=== PATIENT | female | born 1980 | race Caucasian/White ===

== ENCOUNTER 2019-09-12 09:11 | Emergency (ER) | payer BC ==
[2019-09-12] MEDS ORDERED: Sodium Chloride 0.9% 10 ML Syringe FLUSH PRN ×2 (09:49→12:25)
[2019-09-12] MEDS ORDERED: Sodium Chloride 0.9% 1,000 ML IV STA (09:49)
[2019-09-12] MEDS ORDERED: Ondansetron 4 MG/2 ML SDV IVPUSH ONE (09:49)
[2019-09-12] MEDS ORDERED: HYDROmorphone 0.5 MG/0.5 ML Syringe IVPUSH ONE ×2 (09:53→13:44)
--- NOTE | 2019-09-12 09:54 | EDM.PDOC ---
<Shelly Tobar - Last Filed: 09/12/19 10:05> ED HPI GENERAL MEDICAL PROBLEM - General Chief Complaint: Abdominal Pain Stated Complaint: ABDOMINAL PAIN Time Seen by Provider: 09/12/19 09:21 Source of Information: Reports: Patient History Limitations: Reports: No Limitations - History of Present Illness INITIAL COMMENTS - FREE TEXT/NARRATIVE: 38-year-old female presents with RUQ abdominal pain that started this morning. She states that she was sitting in her chair drinking coffee when she noticed a sharp, stabbing pain (8/10) in the RUQ. The pain is intermittent lasting a minute or two every couples minutes. The pain subsides on its own with no interventions. The patient denies bowel and bladder changes. She had not eaten before the pain started and had not physically exerted herself. She notes that she has had this problem in the past and has many images taken via CT and MRI. One past image had found a mass on a her gallbladder, but it was absent in subsequent images. She does have a history of kidney stones but notes that this pain does not feel the same. She has had multiple abdominal surgeries including 3 Cesareans and 3 failed hernia repairs. She does still have her gallbladder and appendix. Her history also includes ankylosing spondylitis. She is not currently on any medications but had recently stopped a steroid pack last week and tordol. She notes that she works for a company that requires her to regularly lift heavy objects, but states that she hadn't injured herself before the pain started. Onset: Today, Sudden Duration: Intermittent Location: Reports: Abdomen (RUQ) Quality: Reports: Sharp, Stabbing Severity: Severe (8/10) Improves with: Reports: None Worsens with: Reports: None Associated Symptoms: Reports: No Other Symptoms Right Upper Abdominal Pain Score (Numeric/FACES): 8 - Related Data Allergies Allergy/AdvReac Type Severity Reaction Status Date / Time No Known Allergies Allergy Verified 09/12/19 09:24 Home Meds: Home Meds Naproxen Sodium [Aleve] 220 mg PO DAILY 09/12/19 [History] Ondansetron [Zofran ODT] 4 mg PO Q6H PRN #20 tab.dis 09/12/19 [Rx] traMADol [Ultram] 50 - 100 mg PO Q6H PRN #20 tab 09/12/19 [Rx] Past Medical History Other HEENT History: barretts esophagus Gastrointestinal History: Reports: Gastritis, Other (See Below) Other Gastrointestinal History: mass found on gallbladder- went away. Social & Family History - Caffeine Use Caffeine Use: Reports: Coffee ED ROS GENERAL - Review of Systems Review Of Systems: See Below Constitutional: Reports: No Symptoms HEENT: Reports: No Symptoms Respiratory: Reports: No Symptoms Cardiovascular: Reports: No Symptoms Endocrine: Reports: No Symptoms GI/Abdominal: Reports: Abdominal Pain (RUQ, sharp stabbing). Denies: Bloody Stool, Constipation, Diarrhea, Distension, Flatus, Nausea, Stool Incontinence, Vomiting : Reports: No Symptoms Musculoskeletal: Reports: No Symptoms Skin: Reports: No Symptoms Neurological: Reports: No Symptoms Psychiatric: Reports: No Symptoms Hematologic/Lymphatic: Reports: No Symptoms ED EXAM, GI/ABD - Physical Exam Exam: See Below Exam Limited By: No Limitations General Appearance: Alert, Mild Distress (intermittent ) Respiratory/Chest: No Respiratory Distress, Lungs Clear, Normal Breath Sounds, No Accessory Muscle Use, Chest Non-Tender Cardiovascular: Regular Rate, Rhythm, No Edema, No Murmur GI/Abdominal Exam: Normal Bowel Sounds, Soft, No Organomegaly, No Distention, No Abnormal Bruit, No Mass, Tender (Tenderness with deep palpation of right kidney, Mcburneys point and Hoang point tenderness negative, mild pain radiation to RUQ when palpating all other areas of abdomen) Back Exam: Normal Inspection (no CVA tenderness) Neurological: Alert, Oriented, Normal Cognition Psychiatric: Normal Affect, Normal Mood Skin Exam: Warm, Dry, Intact, Normal Color, No Rash Course - Vital Signs Last Recorded V/S: Last Vital Signs Temp 97.8 F 09/12/19 09:21 Pulse 82 09/12/19 09:21 Resp 18 09/12/19 09:21 BP 113/75 09/12/19 09:21 Pulse Ox 99 09/12/19 09:21 - Orders/Labs/Meds Orders: Active Orders 24 hr Category Date Time Status Peripheral IV Care [RC] . DIRECTED Care 09/12/19 09:50 Active Sodium Chloride 0.9% [Saline Flush] Med 09/12/19 09:49 Active 10 ml FLUSH ASDIRECTED PRN Sodium Chloride 0.9% [Saline Flush] Med 09/12/19 12:25 Active 10 ml FLUSH ONETIME PRN ED Antiemetic Medication Reflex [OM.PC] Stat Oth 09/12/19 09:52 Ordered Peripheral IV Insertion Adult [OM.PC] Stat Oth 09/12/19 09:49 Ordered Medication Orders Sodium Chloride (Saline Flush) 10 ml FLUSH ASDIRECTED PRN PRN Reason: Keep Vein Open Last Admin: 09/12/19 10:14 Dose: 10 ml Sodium Chloride (Saline Flush) 10 ml FLUSH ONETIME PRN PRN Reason: IV FLUSH Last Admin: 09/12/19 13:42 Dose: 10 ml Labs: Laboratory Tests 09/12/19 09/12/19 09/12/19 Range/Units 09:45 09:45 09:45 WBC 12.79 H (3.98-10.04) K/mm3 RBC 4.54 (3.98-5.22) M/mm3 Hgb 13.8 (11.2-15.7) gm/dl Hct 41.6 (34.1-44.9) % MCV 91.6 (79.4-94.8) fl MCH 30.4 (25.6-32.2) pg MCHC 33.2 (32.2-35.5) g/dl RDW Std Deviation 46.4 H (36.4-46.3) fL Plt Count 395 H (182-369) K/mm3 MPV 9.2 L (9.4-12.3) fl Neut % (Auto) 68.6 (34.0-71.1) % Lymph % (Auto) 23.2 (19.3-51.7) % Gilliam % (Auto) 7.0 (4.7-12.5) % Eos % (Auto) 0.5 L (0.7-5.8) Baso % (Auto) 0.3 (0.1-1.2) % Neut # (Auto) 8.77 H (1.56-6.13) K/mm3 Lymph # (Auto) 2.97 (1.18-3.74) K/mm3 Gilliam # (Auto) 0.90 H (0.24-0.36) K/mm3 Eos # (Auto) 0.06 (0.04-0.36) K/mm3 Baso # (Auto) 0.04 (0.01-0.08) K/mm3 Manual Slide Review Normal smear Sodium 138 (136-145) mEq/L Potassium 4.1 (3.5-5.1) mEq/L Chloride 103 (98-107) mEq/L Carbon Dioxide 24 (21-32) mEq/L Anion Gap 15.1 H (5-15) BUN 10 (7-18) mg/dL Creatinine 0.8 (0.55-1.02) mg/dL Est Cr Clr Drug Dosing 76.15 mL/min Estimated GFR (MDRD) > 60 (>60) mL/min BUN/Creatinine Ratio 12.5 L (14-18) Glucose 96 (74-106) mg/dL Calcium 8.9 (8.5-10.1) mg/dL Total Bilirubin 0.6 (0.2-1.0) mg/dL AST 14 L (15-37) U/L ALT 27 (14-59) U/L Alkaline Phosphatase 64 (46-116) U/L Total Protein 7.5 (6.4-8.2) g/dl Albumin 3.8 (3.4-5.0) g/dl Globulin 3.7 gm/dL Albumin/Globulin Ratio 1.0 (1-2) Lipase 121 (73-393) U/L HCG, Qual Negative (NEGATIVE) Urine Color (Yellow) Urine Appearance (Clear) Urine pH (5.0-8.0) Ur Specific [place] (1.005-1.030) Urine Protein (Negative) Urine Glucose (UA) (Negative) Urine Ketones (Negative) Urine Occult Blood (Negative) Urine Nitrite (Negative) Urine Bilirubin (Negative) Urine Urobilinogen (0.2-1.0) Ur Leukocyte Esterase (Negative) Urine RBC (0-5) /hpf Urine WBC (0-5) /hpf Ur Squamous Epith Cells (0-5) /hpf Urine Bacteria (FEW) /hpf Urine Mucus (FEW) /hpf 09/12/19 Range/Units 10:05 WBC (3.98-10.04) K/mm3 RBC (3.98-5.22) M/mm3 Hgb (11.2-15.7) gm/dl Hct (34.1-44.9) % MCV (79.4-94.8) fl MCH (25.6-32.2) pg MCHC (32.2-35.5) g/dl RDW Std Deviation (36.4-46.3) fL Plt Count (182-369) K/mm3 MPV (9.4-12.3) fl Neut % (Auto) (34.0-71.1) % Lymph % (Auto) (19.3-51.7) % Gilliam % (Auto) (4.7-12.5) % Eos % (Auto) (0.7-5.8) Baso % (Auto) (0.1-1.2) % Neut # (Auto) (1.56-6.13) K/mm3 Lymph # (Auto) (1.18-3.74) K/mm3 Gilliam # (Auto) (0.24-0.36) K/mm3 Eos # (Auto) (0.04-0.36) K/mm3 Baso # (Auto) (0.01-0.08) K/mm3 Manual Slide Review Sodium (136-145) mEq/L Potassium (3.5-5.1) mEq/L Chloride (98-107) mEq/L Carbon Dioxide (21-32) mEq/L Anion Gap (5-15) BUN (7-18) mg/dL Creatinine (0.55-1.02) mg/dL Est Cr Clr Drug Dosing mL/min Estimated GFR (MDRD) (>60) mL/min BUN/Creatinine Ratio (14-18) Glucose (74-106) mg/dL Calcium (8.5-10.1) mg/dL Total Bilirubin (0.2-1.0) mg/dL AST (15-37) U/L ALT (14-59) U/L Alkaline Phosphatase (46-116) U/L Total Protein (6.4-8.2) g/dl Albumin (3.4-5.0) g/dl Globulin gm/dL Albumin/Globulin Ratio (1-2) Lipase (73-393) U/L HCG, Qual (NEGATIVE) Urine Color Yellow (Yellow) Urine Appearance Clear (Clear) Urine pH 7.5 (5.0-8.0) Ur Specific [place] 1.020 (1.005-1.030) Urine Protein Negative (Negative) Urine Glucose (UA) Negative (Negative) Urine Ketones Negative (Negative) Urine Occult Blood Negative (Negative) Urine Nitrite Negative (Negative) Urine Bilirubin Negative (Negative) Urine Urobilinogen 0.2 (0.2-1.0) Ur Leukocyte Esterase Negative (Negative) Urine RBC 0-5 (0-5) /hpf Urine WBC 0-5 (0-5) /hpf Ur Squamous Epith Cells 0-5 (0-5) /hpf Urine Bacteria Rare (FEW) /hpf Urine Mucus Not seen (FEW) /hpf Meds: Medications Generic Name Dose Route Start Last Admin Trade Name Melissa PRN Reason Stop Dose Admin Sodium Chloride 10 ml 09/12/19 09:49 09/12/19 10:14 Saline Flush FLUSH 10 ml ASDIRECTED PRN Administration Keep Vein Open Sodium Chloride 10 ml 09/12/19 12:25 09/12/19 13:42 Saline Flush FLUSH 10 ml ONETIME PRN Administration IV FLUSH Discontinued Medications Generic Name Dose Route Start Last Admin Trade Name Melissa PRN Reason Stop Dose Admin Diatrizoate Meglum/Diatrizoate Sod 120 ml 09/12/19 12:25 09/12/19 13:42 Gastrografin 37% PO 09/12/19 12:26 90 ml ONETIME ONE Administration Hydromorphone HCl 0.5 mg 09/12/19 09:53 09/12/19 10:14 Dilaudid IVPUSH 09/12/19 09:54 0.5 mg ONETIME ONE Administration Hydromorphone HCl 1 mg 09/12/19 11:24 09/12/19 11:31 Dilaudid IVPUSH 09/12/19 11:25 1 mg ONETIME ONE Administration Hydromorphone HCl 0.5 mg 09/12/19 13:44 09/12/19 13:58 Dilaudid IVPUSH 09/12/19 13:45 0.5 mg ONETIME ONE Administration Sodium Chloride 1,000 mls @ 1,000 mls/hr 09/12/19 09:49 09/12/19 10:13 Normal Saline IV 09/12/19 10:48 1,000 mls/hr .BOLUS STA Administration Iopamidol 100 ml 09/12/19 12:25 09/12/19 13:31 Isovue-300 (61%) IVPUSH 09/12/19 12:26 100 ml ONETIME ONE Administration Ondansetron HCl 4 mg 09/12/19 09:49 09/12/19 10:13 Zofran IVPUSH 09/12/19 09:50 4 mg ONETIME ONE Administration Departure - Departure Disposition: Home, Self-Care 01 Clinical Impression: Biliary colic, Biliary sludge determined by ultrasound - Discharge Information Prescriptions: Ondansetron [Zofran ODT] 4 mg PO Q6H PRN #20 tab.dis PRN Reason: Nausea\vomiting traMADol [Ultram] 50 - 100 mg PO Q6H PRN #20 tab PRN Reason: Pain Referrals: PCP,Not In Area [Primary Care Provider] - Francisco Ladd MD [Physician] - 1 Week Forms: ED Department Discharge Additional Instructions: Drink plenty of fluids. Avoid any fried fatty fluids. Take tylenol or motrin for pain. If that does not help, try the ultram. Take the zofran every 6 hours as needed for nausea or vomiting. Call Dr Ladd our general surgeon. Please return if your are wrose. Sepsis Event Note - Evaluation Sepsis Screening Result: No Definite Risk - Focused Exam Vital Signs: Vital Signs Temp Pulse Resp BP Pulse Ox 09/12/19 09:21 97.8 F 82 18 113/75 99 Date Exam was Performed: 09/12/19 Time Exam was Performed: 10:05 - My Orders Last 24 Hours: My Active Orders 09/12/19 09:49 Sodium Chloride 0.9% [Saline Flush] 10 ml FLUSH ASDIRECTED PRN Peripheral IV Insertion Adult [OM.PC] Stat 09/12/19 09:50 Peripheral IV Care [RC] . DIRECTED 09/12/19 09:52 ED Antiemetic Medication Reflex [OM.PC] Stat 09/12/19 12:25 Sodium Chloride 0.9% [Saline Flush] 10 ml FLUSH ONETIME PRN - Assessment/Plan Last 24 Hours: My Active Orders 09/12/19 09:49 Sodium Chloride 0.9% [Saline Flush] 10 ml FLUSH ASDIRECTED PRN Peripheral IV Insertion Adult [OM.PC] Stat 09/12/19 09:50 Peripheral IV Care [RC] . DIRECTED 09/12/19 09:52 ED Antiemetic Medication Reflex [OM.PC] Stat 09/12/19 12:25 Sodium Chloride 0.9% [Saline Flush] 10 ml FLUSH ONETIME PRN <Evan Sun - Last Filed: 09/12/19 15:42> Course - Re-Assessments/Exams Free Text/Narrative Re-Assessment/Exam: 09/12/19 15:31 I examined the patient myself and I agree with [facility]'s assessment and plan. I ordered an IV NS 1L bolus, zofran 4mg IV, dilaudid 1mg IV, labs, UA and an US of her RUQ. Her WBC was elevated at 12.79. Her CMP looks good. Her lipase is normal at 121. Her HCG is negative. Her UA shows no UTI. Her US shows unusual cyst posterior to the gallbladder. Uncertain as to etiology. Most likely etiology is fluid within an adjacent bowel loop. Contrast enhanced CT could be considered to confirm if clinically indicated. Cyst within the right kidney. Sludge ball appears to be present within the gallbladder neck. No shadowing gallstones are seen. No gallbladder wall thickening or biliary duct dilatation is seen. I ordered the CT and it shows fold within the gallbladder. Cystic area most likely represents fluid within the adjacent duodenum as causing the finding sseen on recent US. Cyst within the right kidney. No additional abnormality is seen on CT study of the abdomen and pelvis. She is feeling better. I will have her follow up with Dr Ladd. I will give her some ultram for pain and some zofran for nausea. Departure - Departure Time of Disposition: 15:40 Condition: Good - Discharge Information *PRESCRIPTION DRUG MONITORING PROGRAM REVIEWED*: No *COPY OF PRESCRIPTION DRUG MONITORING REPORT IN PATIENT HUMPHREY: No Sepsis Event Note - Focused Exam Date Exam was Performed: 09/12/19 Time Exam was Performed: 15:31
[2019-09-12] MEDS ORDERED: HYDROmorphone 1 MG/ML Syringe IVPUSH ONE (11:24)
--- NOTE | 2019-09-12 11:58 | US ---
Limited abdominal ultrasound: Multiple real-time images of the upper right abdomen were obtained. Comparison: No previous abdominal imaging is available. Findings: Liver shows no focal parenchymal abnormality. Gallbladder shows an apparent sludge ball within the gallbladder neck. No shadowing gallstones are appreciated. Unusual cystic area posterior to the gallbladder measuring 2.2 x 0.9 x 1.5 cm. No biliary duct dilatation is seen. Right kidney shows no hydronephrosis. Right kidney shows a cyst within the upper pole measuring 2.1 cm in greatest dimension. No abnormality is seen within the visualized pancreas. Main portal vein shows normal hepatopedal flow. Impression: 1. Unusual cyst posterior to the gallbladder. Uncertain as to etiology. Most likely etiology is fluid within an adjacent bowel loop. Contrast enhanced CT could be considered to confirm if clinically indicated. 2. Cyst within the right kidney. 3. Sludge ball appears to be present within the gallbladder neck. No shadowing gallstones are seen. No gallbladder wall thickening or biliary duct dilatation is seen. Diagnostic code #3 This report was dictated in [place] Standard Time
[2019-09-12] MEDS ORDERED: Iopamidol 612 MG/ML 100 ML Bottle IVPUSH ONE (12:25)
[2019-09-12] MEDS ORDERED: Diatrizoate Meglumine/Diatrizoate Sodium 37% 120 ML Bottle PO ONE (12:25)
--- NOTE | 2019-09-12 14:30 | CT ---
CT abdomen and pelvis Technique: Multiple axial sections were obtained from above the dome of the diaphragm inferiorly through the pubic symphysis. Intravenous and oral contrast was utilized. Delayed images were also obtained through the abdomen and pelvis. Comparison: Previous limited abdominal ultrasound performed earlier on same day. Findings: Gallbladder shows a fold. Duodenum is closely related to the gallbladder and this may relate to the questioned cyst on ultrasound. No findings of choledochocyst or other abnormality is seen. Visualized lung bases show nothing acute. Liver contains no focal abnormality. Spleen appears within normal limits. Adrenal glands show no nodule. Pancreas is within normal limits. Kidneys show symmetric contrast enhancement. Cyst is noted within the right kidney measuring 1.2 cm in size. Delayed images shows contrast excretion into both ureters which show no dilatation or obstruction. Contrast is noted within the bladder. Aorta shows no aneurysm. No retroperitoneal adenopathy is seen. No mesenteric abnormalities are seen. Appendix is seen which is normal in size. No pelvic mass or adenopathy noted. No free fluid or inflammatory change is seen. Bone window settings were reviewed which show no acute osseous finding for the patient's age. Impression: 1. Fold within the gallbladder. Cystic area most likely represents fluid within the adjacent duodenum as causing the finding seen on recent ultrasound. 2. Cyst within the right kidney. 3. No additional abnormality is seen on CT study of the abdomen and pelvis. Diagnostic code #2 This report was dictated in [place] Standard Time
== END 2019-09-12 15:50 | disposition home or self-care (01) ==
LOC: JD.ED 09:11
DX: K83.8 Other specified diseases of biliary tract (principal); K80.70 Calculus of gallbladder and bile duct without cholecystitis without obstruction
CPT/HCPCS: 36415; 74177; 76705; 80053; 81001; 83690; 84703; 85025; 96361; 96374; 96375; 96376; 99284; J1170; J2405; J7030; Q9963; Q9967

== ENCOUNTER 2019-09-19 07:43 | Day surgery (SDC) | payer BC ==
[~2019-09-19 07:43] MED LIST: FLU Vacc QS2019-20(6MOS+)/PF 60 MCG/0.5 ML SYRINGE IM ONE; Lactated Ringers 1,000 ML IV SCH; Lidocaine 1% 4 ML ONE; Lidocaine 1%/Sod Bicarbonate in NS 8.4% 1 ML Syringe IDERM PRN; Propofol 200 MG/20 ML SDV ONE; Rocuronium 100 MG/10 ML MDV ONE; Sodium Chloride 0.9% 10 ML Syringe FLUSH PRN; fentaNYL 100 MCG/2 ML SDV ONE
[2019-09-19] MEDS ORDERED: Famotidine 20 MG/2 ML SDV IVPUSH ONE (09:08)
[2019-09-19] MEDS ORDERED: Lidocaine 1%/Sod Bicarbonate in NS 8.4% 1 ML Syringe IDERM PRN (09:08)
[2019-09-19] MEDS ORDERED: Sodium Chloride 0.9% 10 ML Syringe FLUSH PRN (09:08)
--- NOTE | 2019-09-19 09:12 | PCM.PREANE ---
Preanesthetic Assessment - Procedure Proposed Procedure: EGD with Laparoscopic cholecystectomy - Anesthesia/Transfusion/Family Hx Anesthesia History: Prior Anesthesia Without Reaction Family History of Anesthesia Reaction: Other (see below) (Mother has Anectine "allergy." Patient has been tested negative as a child.) Additional History: No previous problems with anesthesia or with intubation per patient. - Review of Systems General: No Symptoms Pulmonary: No Symptoms Cardiovascular: No Symptoms Gastrointestinal: Abdominal Pain Neurological: No Symptoms Other: Reports: None - Physical Assessment NPO Status Date: 09/18/19 NPO Status Time: 21:30 Vital Signs: Last Vital Signs Temp 36.8 C 09/19/19 07:55 Pulse 79 09/19/19 07:55 Resp 16 09/19/19 07:55 BP 110/77 09/19/19 07:55 Pulse Ox 98 09/19/19 07:55 Height: 5 ft 2 in Weight: 77.111 kg ASA Class: 2 Mental Status: Alert & Oriented x3 Airway Class: Mallampati = 2 Dentition: Reports: Normal Dentition Thyro-Mental Finger Breadths: 3 Mouth Opening Finger Breadths: 3 ROM/Head Extension: Full Lungs: Clear to Auscultation, Normal Respiratory Effort Cardiovascular: Regular Rate, Regular Rhythm - Lab Values: Laboratory Last Values Urine HCG, Qual Negative (NEGATIVE) 09/19/19 07:53 - Allergies Allergies/Adverse Reactions: Allergies Allergy/AdvReac Type Severity Reaction Status Date / Time No Known Allergies Allergy Verified 09/18/19 12:44 - Anesthesia Plan Pre-Op Medication Ordered: Antacids - Acknowledgements Anesthesia Type Planned: General Anesthesia Pt an Appropriate Candidate for the Planned Anesthesia: Yes Alternatives and Risks of Anesthesia Discussed w Pt/Guardian: Yes Pt/Guardian Understands and Agrees with Anesthesia Plan: Yes PreAnesthesia Questionnaire HEENT History: Reports: Impaired Vision Other HEENT History: wears glasses Cardiovascular History: Reports: None Respiratory History: Reports: None Gastrointestinal History: Reports: Gastritis, Other (See Below) Other Gastrointestinal History: barretts esophagus, ulcerative colitis Genitourinary History: Reports: None CCIE History: Reports: None Musculoskeletal History: Reports: RA, Other (See Below) Other Musculoskeletal History: ankylosing spondylitis Neurological History: Reports: None Psychiatric History: Reports: None Endocrine/Metabolic History: Reports: None Hematologic History: Reports: None Immunologic History: Reports: None Oncologic (Cancer) History: Reports: None Dermatologic History: Reports: None - Past Surgical History Head Surgeries/Procedures: Reports: None Cardiovascular Surgical History: Reports: None Respiratory Surgical History: Reports: None GI Surgical History: Reports: Hernia Repair/Other Other GI Surgeries/Procedures: abdominoplasty Female Surgical History: Reports: Section Male Surgical History: Reports: None Endocrine Surgical History: Reports: None Neurological Surgical History: Reports: None Musculoskeletal Surgical History: Reports: Other (See Below) Other Musculoskeletal Surgeries/Procedures:: right knee arthroscopy Oncologic Surgical History: Reports: None Dermatological Surgical History: Reports: None - SUBSTANCE USE Smoking Status *Q: Current Every Day Smoker Recreational Drug Use History: Yes Recreational Drug Type: Reports: Marijuana/Hashish - HOME MEDS Home Medications: Home Meds . [No Known Home Meds] 09/18/19 [History] - CURRENT (IN HOUSE) MEDS Current Meds: Current Medications Lactated Ringer's (Ringers, Lactated) 1,000 mls @ 125 mls/hr IV ASDIRECTED HUONG Stop: 09/19/19 23:00 Last Admin: 09/19/19 08:10 Dose: 125 mls/hr Lidocaine/Sodium Bicarbonate (Buffered Lidocaine 1% In Ns 8.4%) 0.25 ml IDERM ONETIME PRN PRN Reason: Prior to IV Start Stop: 09/19/19 18:00 Last Admin: 09/19/19 08:09 Dose: 0.25 ml Sodium Chloride (Saline Flush) 10 ml FLUSH ASDIRECTED PRN PRN Reason: Keep Vein Open Stop: 09/19/19 18:00 Discontinued Medications Bupivacaine HCl/Epinephrine Bitart (Marcaine 0.5%/Epinephrine 1:200,000) Confirm Administered Dose 50 ml .ROUTE .STK-MED ONE Stop: 09/19/19 08:08 Fentanyl (Sublimaze) Confirm Administered Dose 100 mcg .ROUTE .STK-MED ONE Stop: 09/19/19 07:08 Lidocaine HCl (Xylocaine-Mpf 1%) Confirm Administered Dose 4 mls @ as directed .ROUTE .STK-MED ONE Stop: 09/19/19 07:08 Influenza Virus Vaccine (Pharmacy To Dose - Influenza Vaccine) 1 each IM ONETIME [facility] Influenza Virus Vaccine (Fluzone Quad Syringe) 60 mcg IM .ONCE ONE Stop: 09/18/19 13:01 Propofol (Diprivan 20 Ml) Confirm Administered Dose 200 mg .ROUTE .STK-MED ONE Stop: 09/19/19 07:08 Rocuronium [place] (Zemuron) Confirm Administered Dose 100 mg .ROUTE .STK-MED ONE Stop: 09/19/19 07:08
[2019-09-19] MEDS ORDERED: Lactated Ringers 1,000 ML IV SCH (09:15)
[2019-09-19] MEDS ORDERED: Famotidine 20 MG/2 ML SDV ONE (09:18)
[2019-09-19] MEDS: Bupivacaine 0.5%/EPINEPHrine 1:200,000 50 ML MDV ONE ×2 (09:22→10:32)
[2019-09-19] MEDS ORDERED: Bupivacaine 0.5%/EPINEPHrine 1:200,000 50 ML MDV ONE (09:50)
[2019-09-19] MEDS ORDERED: Dexamethasone 4 MG/ML 5 ML MDV ONE (10:20)
[2019-09-19] MEDS ORDERED: Ketorolac 30 MG/ML SDV ONE (10:20)
[2019-09-19] MEDS ORDERED: Ondansetron 4 MG/2 ML SDV ONE (10:20)
[2019-09-19] MEDS ORDERED: Morphine 10 MG/ML SDV ONE (10:27)
[2019-09-19] MEDS ORDERED: HYDROmorphone 0.5 MG/0.5 ML Syringe IVPUSH PRN (10:44)
[2019-09-19] MEDS ORDERED: Ondansetron 4 MG/2 ML SDV IVPUSH PRN (10:44)
[2019-09-19] MEDS ORDERED: fentaNYL 100 MCG/2 ML SDV IVPUSH PRN (10:44)
--- NOTE | 2019-09-19 11:21 | PCM.POSTAN ---
POST ANESTHESIA ASSESSMENT - MENTAL STATUS Mental Status: Alert, Oriented - VITAL SIGNS Vital Signs: Last Vital Signs Temp 36.6 C 09/19/19 11:08 Pulse 76 09/19/19 11:08 Resp 10 L 09/19/19 11:08 BP 111/34 L 09/19/19 11:08 Pulse Ox 97 09/19/19 11:08 - RESPIRATORY Respiratory Status: Respiratory Rate WNL, Airway Patent, O2 Saturation Stable - CARDIOVASCULAR CV Status: Pulse Rate WNL, Blood Pressure Stable - GASTROINTESTINAL GI Status: No Symptoms - PAIN Pain Score: 7 (Treating with IV fentanyl) - POST OP HYDRATION Hydration Status: Adequate & Stable - OBSERVATIONS Free Text/Narrative:: Patient alert and oriented. Transfer to PACU with HOB > 30 degrees. VSS, SV, [place] , FAC, CTAB. Pain 03/15. Treated with 25 mcg IV fentanyl upon arrival to PACU. Remainder left with RN to administer PRN. No concerns at this time.
[2019-09-19] MEDS ORDERED: FLU Vacc QS2019-20(6MOS+)/PF 60 MCG/0.5 ML SYRINGE ONE (11:31)
--- NOTE | 2019-09-19 11:34 | PCM48HPAN ---
Post Anesthesia Note - EVALUATION WITHIN 48HRS OF ANESTHETIC Vital Signs in Normal Range: Yes Patient Participated in Evaluation: Yes Respiratory Function Stable: Yes Airway Patent: Yes Cardiovascular Function Stable: Yes Hydration Status Stable: Yes Pain Control Satisfactory: Yes (Much improved after IV narcotic) Nausea and Vomiting Control Satisfactory: Yes Mental Status Recovered: Yes Vital Signs: Last Vital Signs Temp 36.6 C 09/19/19 11:15 Pulse 77 09/19/19 11:15 Resp 18 09/19/19 11:15 BP 123/68 09/19/19 11:15 Pulse Ox 98 09/19/19 11:15 - COMMENTS/OBSERVATIONS Free Text/Narrative:: Patient markedly improved pain score after IV narcotic. Some discomfort, but not requiring additional pain relief at this time. VSS, SV, [place], FAC, pleasantly conversant. No concerns at this time.
[2019-09-19] MEDS ORDERED: Acetaminophen 325 MG Tab PO ONE (11:59)
--- NOTE | 2019-09-19 15:56 | PCM.PRNOTE ---
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 Mucosal changes near Z-line on endoscopy concerning for severe reflux/ Alamo esophagus Detailed Report: The patient was taken to the operating room and placed on the table in supine position. Timeout was performed, and general endotracheal anesthesia was administered. The abdomen was prepped and draped in usual sterile fashion. Local anesthetic was injected at the left subcostal region even with the midclavicular line. A stab incision was made, and the Veress needle was inserted into the abdominal cavity. Insufflation was achieved, setting pressure of 15 mmHg. A 5 mm midline longitudinal incision above where the umbilicus was was made using the 11 blade scalpel. A 5 mm port was inserted into the abdomen after aspirating air at the site in order to confirm safe placement. A 5 mm 30 degree laparoscope was inserted in the abdomen. There was omentum adherent to the anterior abdominal wall, but this did not obscure our view of the liver and gallbladder. The remainder of the abdominal contents appeared normal, and the Veress insertion site appeared to be without any complications. The Veress needle was removed, and additional ports were placed. After injecting local anesthetic of planned port sites, 2 additional 5 mm ports were placed on the right side of the abdomen, and a 12 mm subxiphoid port was placed. The locking grasper was inserted and used to grasp the fundus of the gallbladder and reflected superiorly and anteriorly. This exposed the infundibulum, and the surgeon's left hand was used to retract the infundibulum laterally, exposing the cystic structures. Electrocautery was used to incise the peritoneum over the cystic duct, and careful dissection proceeded in order to expose the cystic duct and cystic artery. Dissection was straightforward and easy. With a critical view of safety, metal clips were placed on the structures, 2 on the stay side for each, and one on the specimen side. Laparoscopic scissors were used to transect the duct and artery between the clips. Cautery was used to dissect remaining attachments of the gallbladder to the liver. The gallbladder was placed in Endo Catch, and removed through the subxiphoid site. No irrigation was necessary in this case. The fascia at the larger incision site was closed using the PMI laparoscopic suture passer. Skin sites were closed with subcuticular absorbable suture. Wounds were dressed with Dermabond. Next, upper endoscopy was performed. The endoscope was advanced from the mouth all the way to the second portion of the duodenum. Duodenal mucosal appeared normal, with ledesma bile within the lumen. The pylorus appeared grossly normal , as well as incisura, and fundus on retroflexion. As the scope was withdrawn, inspection of the Z line area revealed some mucosal abnormalities with polypoid lesions, and evidence of active inflammation. The most prominent of the polypoid lesions was biopsied with forceps. Aside from the distal esophageal abnormalities noted, the remainder of the esophagus appeared normal. The scope was then completely withdrawn, and the patient was extubated in the operating room prior to transfer to the recovery unit. Francisco Ladd MD General Surgery
== END 2019-09-19 13:11 | disposition home or self-care (01) ==
LOC: JD.SDS 07:43
PROVIDERS: ATTEND Surgery
DX: K81.1 Chronic cholecystitis (principal); D19.9 Benign neoplasm of mesothelial tissue, unspecified; K22.70 Barrett's esophagus without dysplasia; K21.0 Gastro-esophageal reflux disease with esophagitis; M06.9 Rheumatoid arthritis, unspecified; F17.210 Nicotine dependence, cigarettes, uncomplicated
CPT/HCPCS: 00790; 81025; 90686; A9270-GY; G0008; J1100; J1885; J2001; J2270; J2405; J2704; J3010; J3490; J7120

== ENCOUNTER 2020-06-15 16:02 | Emergency (ER) | payer BC ==
--- NOTE | 2020-06-15 17:38 | EDM.PDOC ---
ED HPI GENERAL MEDICAL PROBLEM - General Chief Complaint: General Stated Complaint: R ARM PAIN AND SWELLING/JOINT PAIN Time Seen by Provider: 06/15/20 17:12 Source of Information: Reports: Patient History Limitations: Reports: No Limitations - History of Present Illness INITIAL COMMENTS - FREE TEXT/NARRATIVE: 39-year-old female presents to the ED primarily for pain management. She has a primary diagnosis of ankylosing spondylitis diagnosed 14 years ago and she gets intermittent flareup of severe pain in her back but she also has associated pain in all of her fingers from osteoarthritic change as well as her knees and right shoulder particularly. She states she has been using Motrin with very little relief. She does not have an appointment to see a land commissioner in [place] until July 21. She had a land commissioner in the state that she moved from which was several months ago. She states over the 14 years she has had about 4 or 5 flareups were she cannot hang onto anything because of severity of pain in her hands etc. She does have a component of a restrictive lung disease. Decision made to place her on meloxicam 15 mg once daily for 21-day trial. To s ee if it reduce pain and inflammation. Tramadol 50 mg 1 or 2 every 4-6 hours as needed for pain relief. She also started on prednisone 20 mg twice daily breakfast and supper for 6 days then once in the morning only for another 6 days. Onset: Gradual Onset Date: 06/06/20 Duration: Day(s):, Getting Worse Location: Reports: Back, Upper Extremity, Left (Left hand throughout all of the), Upper Extremity, Right ( PIP and DIP joints. All through the DIP and PIP joints of his right hand as well), Lower Extremity, Left (Left toes particularly the great toe), Lower Extremity, Right (Right great toe), Other (Very limited range of motion of her right shoulder making it difficult to put on her shirt or jacket.) Quality: Reports: Ache, Throbbing Severity: Moderate (7-8 out of 10.) Improves with: Reports: Other (Motrin helps a bit.) Worsens with: Reports: Movement Context: Denies: Activity, Exercise, Lifting, Sick Contact, Trauma, Other Associated Symptoms: Reports: Weakness. Denies: No Other Symptoms, Confusion, Chest Pain, Cough, cough w sputum, Diaphoresis, Fever/Chills, Headaches, Loss of Appetite, Malaise, Nausea/Vomiting, Seizure, Shortness of Breath, Syncope Treatments [employer]: Reports: Acetaminophen, NSAIDS Generalized Pain Score (Numeric/FACES): 7 - Related Data Allergies Allergy/AdvReac Type Severity Reaction Status Date / Time No Known Allergies Allergy Verified 06/15/20 16:24 Home Meds: Home Meds Lansoprazole [Prevacid] 30 mg PO DAILY #42 capsule.dr 06/15/20 [Rx] Meloxicam 15 mg PO DAILY #21 tablet 06/15/20 [Rx] Naproxen Sodium [Aleve] 220 mg PO Q6H PRN 06/15/20 [History] predniSONE [Prednisone] 20 mg PO BID #18 tablet 06/15/20 [Rx] traMADol [Ultram] 50 mg PO Q6H PRN #60 tab 06/15/20 [Rx] Past Medical History HEENT History: Reports: Impaired Vision Other HEENT History: wears glasses Cardiovascular History: Reports: None Respiratory History: Reports: None Gastrointestinal History: Reports: Gastritis, Other (See Below) Other Gastrointestinal History: barretts esophagus, ulcerative colitis Genitourinary History: Reports: None SYSTEM SUPPORT SPECIALIST History: Reports: None Musculoskeletal History: Reports: RA, Other (See Below) Other Musculoskeletal History: ankylosing spondylitis Neurological History: Reports: None Psychiatric History: Reports: None Endocrine/Metabolic History: Reports: None Hematologic History: Reports: None Immunologic History: Reports: None Oncologic (Cancer) History: Reports: None Dermatologic History: Reports: None - Past Surgical History Head Surgeries/Procedures: Reports: None Cardiovascular Surgical History: Reports: None Respiratory Surgical History: Reports: None GI Surgical History: Reports: Hernia Repair/Other Other GI Surgeries/Procedures: abdominoplasty Female Surgical History: Reports: Section Male Surgical History: Reports: None Endocrine Surgical History: Reports: None Neurological Surgical History: Reports: None Musculoskeletal Surgical History: Reports: Other (See Below) Other Musculoskeletal Surgeries/Procedures:: right knee arthroscopy Oncologic Surgical History: Reports: None Dermatological Surgical History: Reports: None Social & Family History - Caffeine Use Caffeine Use: Reports: Coffee, Energy Drinks, Soda - Living Situation & Occupation Living situation: Reports: Occupation: Employed ED ROS GENERAL - Review of Systems Review Of Systems: See Below Constitutional: Reports: Malaise, Weakness, Fatigue, Decreased Appetite. Denies: Fever, Chills HEENT: Reports: Glasses Respiratory: Reports: No Symptoms Cardiovascular: Reports: No Symptoms Endocrine: Reports: Fatigue GI/Abdominal: Reports: Other (Stiff gastritis dyspepsia). Denies: Hematemesis ( but no true odynophagia or GI bleeding), Hematochezia, Melena : Reports: No Symptoms Musculoskeletal: Reports: Back Pain (With diagnosis of ankylosing spondylitis. Severe pain mid back), Hand Pain (Lateral hand pain involving the DIP and PIP joints of both hands.), Foot Pain (Involving the DIP and PIP joints of all joints in both feet.), Joint Pain Skin: Reports: No Symptoms Neurological: Reports: No Symptoms Psychiatric: Reports: No Symptoms Hematologic/Lymphatic: Reports: No Symptoms Immunologic: Reports: No Symptoms ED EXAM, GENERAL - Physical Exam Exam: See Below Exam Limited By: No Limitations General Appearance: Alert, WD/WN, Mild Distress, Other (Patient has obvious pain with very significant pain in both hands with inability to close either hand completely. There is significant swelling and active synovitis of the DIP and PIP joints of both hands and feet. She has significant decreased forward flexion and abduction of her right shoulder to less than 50 degrees suggesting severe degenerative arthritis versus torn rotator cuff.) Eye Exam: Bilateral Eye: Normal Inspection, PERRL Throat/Mouth: Normal Inspection, Normal Lips, Normal Oropharynx Head: Atraumatic, Normocephalic Neck: Normal Inspection, Supple, Non-Tender, Full Range of Motion. No: Lymphadenopathy (L), Lymphadenopathy (R) Respiratory/Chest: No Respiratory Distress, Lungs Clear, Normal Breath Sounds, No Accessory Muscle Use Cardiovascular: Normal Peripheral Pulses, Regular Rate, Rhythm, No Edema, No Gallop, No Murmur, No Rub Peripheral Pulses: 3+: Carotid (L), Carotid (R) GI/Abdominal: Normal Bowel Sounds, Soft, Non-Tender, No Organomegaly, No Mass Back Exam: Vertebral Tenderness (Marked vertebral tenderness mid thoracic spine and lumbar spine.). No: Full Range of Motion, CVA Tenderness (L), CVA Tenderness (R) Extremities: Normal Inspection, Normal Range of Motion, Non-Tender, No Pedal Edema Neurological: Alert, Oriented, CN II-XII Intact, Normal Cognition, No Motor/Sensory Deficits ( knees.), Other (Antalgic gait due to pain in her feet) Course - Vital Signs Last Recorded V/S: Last Vital Signs Temp 36.9 C 06/15/20 16:18 Pulse 76 06/15/20 16:18 Resp 18 06/15/20 16:18 BP 117/73 06/15/20 16:18 Pulse Ox 100 06/15/20 16:18 - Radiology Interpretation Free Text/Narrative:: 39-year-old female with a history of ankylosing spondylitis affecting her thoracic spine and SI joints presents to the ED primarily for pain management. She has moved from a another [facility] to [place] and has not been able to get into a land commissioner until July 21. She is experienced a flareup of her disease process over the last 10 days but cannot handle it any longer. She has evidence of osteoarthritic changes in both hands involving DIP and PIP joints as well as in her feet. She has mild osteoarthritic change with active synovitis in both knees and pain throughout both lumbar spine. She has significant limited range of motion of her right shoulder suggesting either severe degenerative arthritic change at the glenohumeral joint or rotator cuff or both. She was not interested in x-rays of her shoulder today. Plan she will be mera karel on prednisone 20 mg twice daily for 6 days with breakfast and supper and then 1 tab in the morning for another 6 days. Meloxicam 15 mg once daily for 21 days as a trial medication to see if it would reduce pain and inflammation. She has not to take Motrin while taking this medication. She was given 15 tablets of tramadol 50 mg strength to be taken 1 or 2 every 4-6 hours primarily before bed to allow her to get better quality sleep. Hopefully the steroids will reduce the inflammation in her joints very quickly. Departure - Departure Time of Disposition: 17:32 Disposition: Home, Self-Care 01 Condition: Fair Clinical Impression: Ankylosing spondylitis Qualifiers: Ankylosing spondylitis location: thoracic region Qualified Code(s): M45.4 - Ankylosing spondylitis of thoracic region Osteoarthritis of hands, bilateral Qualifiers: Osteoarthritis type: primary Qualified Code(s): M19.041 - Primary osteoarthritis, right hand - Discharge Information *PRESCRIPTION DRUG MONITORING PROGRAM REVIEWED*: Not Applicable *COPY OF PRESCRIPTION DRUG MONITORING REPORT IN PATIENT HUMPHREY: Not Applicable Prescriptions: Meloxicam 15 mg PO DAILY #21 tablet predniSONE [Prednisone] 20 mg PO BID #18 tablet Lansoprazole [Prevacid] 30 mg PO DAILY #42 capsule. traMADol [Ultram] 50 mg PO Q6H PRN #60 tab PRN Reason: Ankylosing spondylitis Instructions: Arthritis, [id number], Osteoarthritis, Ankylosing Spondylitis, Adult Referrals: PCP,None [Primary Care Provider] - Forms: ED Department Discharge Additional Instructions: Evaluation in the emergency room today in regards to a flareup of your ankylosing spondylitis which you have had for the last 14 years. Ankylosing spondylitis primarily affects the mid and lower back. You also are starting to show signs of degenerative arthritis or [id number] arthritis involving her hand joints foot joints and right shoulder. Suggest treatment with meloxicam 15 mg once daily every morning for the next 21 days as a trial medication to see if this provides relief of inflammation and reduction of pain. He should not take Motrin while on this medication since they both do the same thing. It is okay to take Tylenol 650 mg every 4 hours if needed. You will be placed on a course of prednisone 20 mg with breakfast and supper for 6 days and then 1 in the morning only for another 6 days to further reduce pain and inflammation caused by arthritis and ankylosing spondylitis. I would suggest picking up a [id number] medication Prevacid 30 mg tablet once daily to protect the lining of the stomach from the effects of anti-inflammatories and steroids. Tramadol 50 mg tablet 1 every 6 hours as needed for pain relief. Follow-up with land commissioner in July as planned. Sepsis Event Note (ED) - Evaluation Sepsis Screening Result: No Definite Risk - Focused Exam Vital Signs: Vital Signs Temp Pulse Resp BP Pulse Ox 06/15/20 16:18 36.9 C 76 18 117/73 100
== END 2020-06-15 18:05 | disposition home or self-care (01) ==
LOC: JD.ED 16:02
DX: M45.4 Ankylosing spondylitis of thoracic region (principal); M19.041 Primary osteoarthritis, right hand; M19.042 Primary osteoarthritis, left hand; Z79.899 Other long term (current) drug therapy
CPT/HCPCS: 99283; 99284